=== PATIENT | male | born 1980 | race Hispanic/Latino ===

== ENCOUNTER 2018-11-22 13:18 | Emergency (ER) | payer OTHER ==
[2018-11-22] MEDS ORDERED: LIDOCAINE 2%-EPI 1:200,000 20 ML VIAL IJ ONE (13:30)
[2018-11-22] MEDS ORDERED: CEFAZOLIN SODIUM 1 GM VIAL ONE (13:30)
[2018-11-22] MEDS ORDERED: ACETAMINOPHEN EXTRA STRENGTH 500 MG TABLET ONE (13:31)
[2018-11-22] MEDS ORDERED: TETANUS/DIPHTHERIA TOXOID [ADULT] 0.5 ML VIAL IM ONE (13:31)
[2018-11-22] MEDS ORDERED: OCTYL 2-CYANOACRYLATE 1 EACH TP ONE (14:31)
== END 2018-11-22 15:46 | disposition home or self-care (01) ==
LOC: EDH 13:18
DX: S61.411A Laceration without foreign body of right hand, initial encounter (principal); Z87.891 Personal history of nicotine dependence; W25.XXXA Contact with sharp glass, initial encounter; Y93.89 Activity, other specified; Y92.89 Other specified places as the place of occurrence of the external cause; Y99.8 Other external cause status
CPT/HCPCS: 12001; 12042; 73130; 90471; 90714; 99285; J0690; J3490